=== PATIENT | male | born 1995 | race Caucasian/White ===

== ENCOUNTER 2020-09-29 23:58 | Emergency (ER) | payer OTHER ==
[2020-09-30] MEDS ORDERED: Lidocaine 2% with EPINEPHrine 1:200,000 20 ML SDV INJECT ONE (00:28)
--- NOTE | 2020-09-30 00:51 | EDM.PDOC ---
ED HPI GENERAL MEDICAL PROBLEM - General Chief Complaint: Laceration Stated Complaint: RIGHT SIDE OF HEAD, FELL AND CUTT Time Seen by Provider: 09/30/20 00:25 Source of Information: Reports: Patient History Limitations: Reports: No Limitations - History of Present Illness INITIAL COMMENTS - FREE TEXT/NARRATIVE: This 25 yo male patient reports to the ED due to a laceration to his right posterior scalp. The [place] on [place] and fell into the rocks. The patient had a towel to control the bleeding upon arrival. Onset: Today Duration: Minutes: Location: Reports: Head Quality: Reports: Ache Severity: Mild Improves with: Reports: None Worsens with: Reports: None Context: Reports: Other Associated Symptoms: Reports: No Other Symptoms back of head. Pain Score (Numeric/FACES): 1 - Related Data Allergies Allergy/AdvReac Type Severity Reaction Status Date / Time No Known Allergies Allergy Verified 09/30/20 00:27 Home Meds: Home Meds . [No Known Home Meds] 09/30/20 [History] Past Medical History - Past Health History Medical/Surgical History: Denies Medical/Surgical History Genitourinary History: Reports: Renal Calculus Musculoskeletal History: Reports: Other (See Below) Other Musculoskeletal History: wrist fx. Social & Family History - Tobacco Use Tobacco Use Status *Q: Current Every Day Tobacco User Years of Tobacco use: 3 Packs/Tins Daily: 0.5 - Recreational Drug Use Recreational Drug Use: No ED ROS GENERAL - Review of Systems Review Of Systems: Comprehensive ROS is negative, except as noted in HPI. ED EXAM, SKIN/RASH Exam: See Below Exam Limited By: No Limitations General Appearance: Alert, WD/WN, No Apparent Distress Eye Exam: Bilateral Eye: EOMI, Normal Inspection, PERRL Ears: Normal External Exam, Normal Canal, Hearing Grossly Normal, Normal TMs Nose: Normal Inspection, Normal Mucosa, No Blood Throat/Mouth: Normal Inspection, Normal Lips, Normal Teeth, Normal Gums, Normal Oropharynx, Normal Voice, No Airway Compromise Head: Other (Right posterior scalp laceration) Neck: Normal Inspection, Supple, Non-Tender, Full Range of Motion Respiratory/Chest: No Respiratory Distress, Lungs Clear, Normal Breath Sounds, No Accessory Muscle Use, Chest Non-Tender Cardiovascular: Normal Peripheral Pulses, Regular Rate, Rhythm, No Edema, No Gallop, No JVD, No Murmur, No Rub GI/Abdominal: Normal Bowel Sounds, Soft, Non-Tender, No Organomegaly, No Distention, No Abnormal Bruit, No Mass (Male) Exam: Deferred Rectal (Males) Exam: Deferred Back Exam: Normal Inspection, Full Range of Motion, NT Extremities: Normal Inspection, Normal Range of Motion, Non-Tender, No Pedal Edema, Normal Capillary Refill Neurological: Alert, Oriented, CN II-XII Intact, Normal Cognition, Normal Gait, Normal Reflexes, No Motor/Sensory Deficits Psychiatric: Normal Affect, Normal Mood Skin: Warm, Dry, Normal Color, No Rash, Wound/Incision Location, Skin: Head Characteristics: Linear Lymphatic: No Adenopathy ED SKIN PROCEDURES - Laceration/Wound Repair Right Posterior Head Appearance: Subcutaneous Anesthetic Type: Local Local Anesthesia - Lidocaine (Xylocaine): 2% with EPI Local Anesthetic Volume: 4cc Skin Prep: Chlorhexidine (Hibiciens), Saline Exploration/Debridement/Repair: Wound Explored, Explored to Base, No Foreign Material Found Closed with: Sutures Lac/Wound length In cm: 6.0 Suture Size: 3-0 # of Sutures: 8 Suture Type: Prolene, Interrupted, Simple Drain Placement: No Sterile Dressing Applied: Nurse Tetanus Status Addressed: Yes Complications: No Course - Vital Signs Last Recorded V/S: Last Vital Signs Temp 98.7 F 09/30/20 00:22 Pulse 99 09/30/20 00:22 Resp 16 09/30/20 00:22 BP 163/73 H 09/30/20 00:22 Pulse Ox 99 09/30/20 00:22 - Orders/Labs/Meds Meds: Medications Discontinued Medications Generic Name Dose Route Start Last Admin Trade Name Eddie PRN Reason Stop Dose Admin Lidocaine/Epinephrine 20 ml 09/30/20 00:28 09/30/20 00:35 Lidocaine 2% With Epinephrine 1:200,000 20 Ml Sdv INJECT 09/30/20 00:29 20 ml ONETIME ONE Administration Departure - Departure Time of Disposition: 00:50 Disposition: Home, Self-Care 01 Condition: Fair Clinical Impression: Scalp laceration Qualifiers: Encounter type: initial encounter Qualified Code(s): S01.01XA - Laceration without foreign body of scalp, initial encounter - Discharge Information *PRESCRIPTION DRUG MONITORING PROGRAM REVIEWED*: Not Applicable *COPY OF PRESCRIPTION DRUG MONITORING REPORT IN PATIENT [place]: Not Applicable Instructions: Laceration Care, Adult, Fdiy-es-Alix Forms: ED Department Discharge Care Plan Goals: The patient was advised of the examination results during the visit. The laceration margins were well approximated during the visit. The patient should keep the area clean and dry over the next 24 hours. The patient should have the sutures removed in 10-14 days. If the patient has any additional symptoms or concerns, the patient should either return to the emergency department or follow-up with his primary care facility. Sepsis Event Note (ED) - Evaluation Sepsis Screening Result: No Definite Risk - Focused Exam Vital Signs: Vital Signs Temp Pulse Resp BP Pulse Ox 09/30/20 00:22 98.7 F 99 16 163/73 H 99
== END 2020-09-30 00:58 | disposition home or self-care (01) ==
LOC: DL.ED 23:58
DX: S01.01XA Laceration without foreign body of scalp, initial encounter (principal); Z72.0 Tobacco use; W01.198A Fall on same level from slipping, tripping and stumbling with subsequent striking against other object, initial encounter
CPT/HCPCS: 12002; 99282; 99282-25